=== PATIENT | male | born 1985 | race Asian ===

== ENCOUNTER 2024-03-13 20:46 | Emergency (ER) | payer SELFPAY ==
[~2024-03-13] VITALS: Ht 182.9 cm; Wt 84.0 kg
[2024-03-13 21:22] VITALS: O2SAT 99
[2024-03-13 21:55] LABS: CLARITY URINE CLEAR (CLEAR); COLOR URINE YELLOW (YELLOW); GLUCOSE URINE NEGATIVE (NEGATIVE); KETONES URINE NEGATIVE (NEGATIVE); LEUKOCYTE ESTERASE URINE 1+ (NEGATIVE); NITRITE URINE NEGATIVE (NEGATIVE); OCCULT BLOOD URINE NEGATIVE (NEGATIVE); PROTEIN URINE NEGATIVE (NEGATIVE); SPECIFIC GRAVITY URINE 1.021 (1.005-1.030)
[2024-03-13 22:18] LABS: BACTERIA URINE 1+; RBC URINE 0-2 /hpf (0-2); SQUAMOUS EPITHELIAL CELL URINE FEW /lpf (RARE/1+)
[2024-03-14 00:22] LABS: BASOPHILS % 1.2 % (0.0-2.0); EOSINOPHILS % 2.2 % (0.0-5.0); HEMATOCRIT. 45.5 % (42.0-52.0); HEMOGLOBIN. 15.4 g/dL (14.0-18.0); LYMPHOCYTES % 44.4 % (20.0-50.0); MEAN CORPUSCULAR HEMOGLOBIN 31.7 pg (28.0-32.0); MEAN CORPUSCULAR HGB CONC 33.8 g/dL (31.0-37.0); MEAN CORPUSCULAR VOLUME 93.6 fL (80.0-94.0); MEAN PLATELET VOLUME 7.8 fl (7.4-10.4); MONOCYTES % 6.6 % (2.0-8.0); NEUTROPHILS % 45.6 % (40.0-76.0); PLATELET 187 x1000/uL (130-400); RED BLOOD CELL COUNT 4.86 mill/uL (4.7-6.1); RED CELL DISTRIBUTION WIDTH 14.2 % (11.6-14.6); WHITE BLOOD COUNT 6.2 x1000/uL (4.5-11.0)
[2024-03-14 00:23] LABS: CHLORIDE 109 mEq/L (98-107); POTASSIUM 3.7 mEq/L (3.5-5.1); SODIUM 139 mEq/L (136-145)
[2024-03-14 00:24] LABS: CALCIUM 10.2 mg/dL (8.7-10.4); CARBON DIOXIDE 23 mEq/L (21-32)
[2024-03-14 00:29] LABS: CREATININE 0.9 mg/dL (0.6-1.3); GLUCOSE 118 mg/dL (70-105); UREA NITROGEN BLOOD 12 mg/dL (9-23)
[2024-03-14 00:31] LABS: ALANINE AMINOTRANSFERASE 163 IU/L (10-49); ALBUMIN 4.5 g/dL (3.2-4.8); ASPARTATE AMINOTRANSFERASE 87 IU/L (<34); BILIRUBIN DIRECT 0.2 mg/dL (<=3.0); BILIRUBIN TOTAL 0.6 mg/dL (0.1-1.0); PROTEIN TOTAL 8.5 g/dL (6.0-8.3)
[2024-03-14] MEDS: ONDANSETRON 4MG ODT PO NR (02:02)
[2024-03-14] MEDS: IBUPROFEN 400MG TABLET PO NR (02:02)
[2024-03-14] MEDS: IBUPROFEN 400MG TABLET PO ONE (02:03)
[2024-03-14] MEDS ORDERED: CIPR500T5 MT (02:03)
[2024-03-14] MEDS: ONDANSETRON 4MG ODT PO ONE (02:04)
[2024-03-14 02:17] VITALS: BP 127/65; PULSE 82; RESP 18; TEMP 98.2
== END 2024-03-14 02:19 | disposition home or self-care (01) ==
LOC: ER 20:46
DX: K74.60 Unspecified cirrhosis of liver (principal); N39.0 Urinary tract infection, site not specified
CPT/HCPCS: 99284; 80076; 80048; 81003; 83690; 85025; 36415; 74176; Q0162